=== PATIENT | male | born 1945 | race Caucasian/White ===

== ENCOUNTER → 2016-05-19 | Outpatient (CLI) | payer MEDICARE | END | disposition home or self-care (01) | LOC: LABWHC1 14:45 | PROVIDERS: ATTEND Internal Medicine | DX: E03.9 Hypothyroidism, unspecified (principal) | CPT/HCPCS: 36415; 84439; 84443 ==

== ENCOUNTER 2022-09-09 21:57 | Emergency (ER) | payer MEDICARE ==
[2022-09-09 22:09] VITALS: TEMP 97.7
--- NOTE | 2022-09-09 22:26 | ED ---
Male Urogenital HPI - General Chief complaint: Urogenital Stated complaint: Can't go pee Time Seen by Provider: 09/09/22 22:12 Source: patient, RN notes reviewed, old records reviewed Mode of arrival: ambulatory Limitations: no limitations - History of Present Illness Initial comments: This is a 77 -year-old male unable to urinate. Patient presents today with difficulty in urination. Severe severe abdominal pain. History of difficulty with urination secondary to prostate issues. Patient has known prior need for Sanchez catheterization. No recent fevers cough congestion travel history no blood in the urine. MD Complaint: other (Severe abdominal pain) -: hour(s) Location: abdomen Radiation: none Severity: moderate Severity scale (1-10): 7 Quality: stabbing Consistency: constant Improves with: none Worsens with: none Reports: denies other symptoms, urinary retention - Related Data Allergies Allergy/AdvReac Type Severity Reaction Status Date / Time No Known Allergies Allergy Verified 09/09/22 22:09 Review of Systems ROS Statement: Those systems with pertinent positive or pertinent negative responses have been documented in the HPI. ROS Other: All systems not noted in ROS Statement are negative. Past Medical History Past Medical History: Hyperlipidemia, Hypertension, Thyroid Disorder Past Surgical History: Joint Replacement, Tonsillectomy Additional Past Surgical History / Comment(s): thyroidectomy Past Psychological History: No Psychological Hx Reported Smoking Status: Never smoker Past Alcohol Use History: None Reported Past Drug Use History: None Reported General Exam Limitations: no limitations General appearance: alert, in no apparent distress, anxious Head exam: Present: atraumatic, normocephalic, normal inspection Eye exam: Present: normal appearance, PERRL, EOMI. Absent: scleral icterus, conjunctival injection, periorbital swelling ENT exam: Present: normal exam, mucous membranes moist Neck exam: Present: normal inspection. Absent: tenderness, meningismus, lymphadenopathy Respiratory exam: Present: normal lung sounds bilaterally. Absent: respiratory distress, wheezes, rales, rhonchi, stridor Cardiovascular Exam: Present: regular rate, normal rhythm, normal heart sounds. Absent: systolic murmur, diastolic murmur, rubs, gallop, clicks GI/Abdominal exam: Present: soft, normal bowel sounds. Absent: distended, tenderness, guarding, rebound, rigid Extremities exam: Present: normal inspection, full ROM, normal capillary refill. Absent: tenderness, pedal edema, joint swelling, calf tenderness Back exam: Present: normal inspection Neurological exam: Present: alert, oriented X3, CN II-XII intact Psychiatric exam: Present: normal affect, normal mood Skin exam: Present: warm, dry, intact, normal color. Absent: rash Course Vital Signs 09/09/22 09/10/22 09/10/22 21:59 01:00 03:45 Temperature 97.7 F Pulse Rate 100 84 80 Respiratory 28 H 16 16 Rate Blood Pressure 161/100 183/88 168/85 O2 Sat by Pulse 97 95 99 Oximetry - Reevaluation(s) Reevaluation #1: 09/10/22 01:55 Medical record is reviewed Reevaluation #2: 09/10/22 01:56 Patient informed results questions answered Reevaluation #3: 09/10/22 01:56 Patient has relief with Sanchez catheter placement Reevaluation #4: 09/10/22 01:56 Was pt. sent in by a medical professional or institution? @ -no Did you speak to anyone other than the patient for history? @ -no Did you review nursing and triage notes? @ -agree Were old charts reviewed? @ -yes Differential Diagnosis? @ -prior EKG interpreted by me (3pts min.)? @ -no X-rays interpreted by me (1pt min.)? @ -no CT interpreted by me (1pt min.)? @ -yes U/S interpreted by me (1pt. min.)? @ -no What testing was considered but not performed? (CT, X-rays, U/S, labs)? Why? @ -no What meds were considered but not given? Why? @ -no Did you discuss the management of the patient with other professionals? @ -no Did you reconcile home meds? @ -no Was smoking cessation discussed for >3mins.? @ -no Was critical care preformed (if so, how long)? @ -no Were there social determinants of health that impacted care today? How? (Homelessness, low income, unemployed, alcoholism, drug addiction, transportation, low edu. Level, literacy, decrease access to med. care, long term, rehab)? @ -no Was there de-escalation of care discussed even if they declined? (Discuss DNR or withdrawal of care, Hospice)? @ -no What co-morbidities impacted this encounter? (DM, HTN, Smoking, COPD, CAD, Cancer, CVA, Hep., AIDS, mental health diagnosis, sleep apnea, morbid obesity)? @ -none Was patient admitted / discharged? @ -77 male to the emergency department for evaluation. Patient has Sanchez catheter placed with significant urinary output. Patient did have residual abdominal pain despite Sanchez catheter placement. Patient symptoms are improving he can be discharged home Discharged Undiagnosed new problem with uncertain prognosis? @ -no Drug Therapy requiring intensive monitoring for toxicity (Heparin, Nitro, Insulin, Cardizem)? @ -no Were any procedures done? @ -no Diagnosis/symptom? @ -Urinary retention and abdominal pain Acute, or Chronic, or Acute on Chronic? @ -acute Uncomplicated (without systemic symptoms) or Complicated (systemic symptoms)? @ -complicated Side effects of treatment? @ -no Exacerbation, Progression, or Severe Exacerbation] @ -no Poses a threat to life or bodily function? @ -no Reevaluation #5: 09/10/22 01:56 Differential Abdominal Pain Men: Appendicitis, cholecystitis, diverticulosis, ischemic bowel, pancreatitis, hepatitis, UTI, gastroenteritis, AAA, incarcerated hernia, bowel obstruction, constipation, inflammatory bowel, hepatitis, peptic ulcer disease, splenic infarction, perforated viscus, testicular torsion, this is not meant to be an all-inclusive list Medical Decision Making - Medical Decision Making 77 male to the emergency department for evaluation. Patient has Sanchez catheter placed with significant urinary output. Patient symptoms are improving he can be discharged home - Lab Data Lab Results 09/09/22 Range/Units 23:30 Urine Color Light Yellow Urine Appearance Clear (Clear) Urine pH 5.5 (5.0-8.0) Ur Specific [place] 1.011 (1.001-1.035) Urine Protein Negative (Negative) Urine Glucose (UA) Negative (Negative) Urine Ketones Negative (Negative) Urine Blood Negative (Negative) Urine Nitrite Negative (Negative) Urine Bilirubin Negative (Negative) Urine Urobilinogen <2.0 (<2.0) mg/dL Ur Leukocyte Esterase Negative (Negative) - Radiology Data Radiology results: report reviewed (CT of the abdomen and pelvis is negative for acute disease), image reviewed Disposition Clinical Impression: Urinary retention Disposition: HOME SELF-CARE Condition: Good Instructions (If sedation given, give patient instructions): Urinary Retention in Men (ED) Is patient prescribed a controlled substance at d/c from ED?: No Referrals: Mariana Cox MD [STAFF PHYSICIAN] - 1-2 days Time of Disposition: 03:00
[2022-09-09] MEDS ORDERED: HYDROmorphone 1 MG/ML 1 ML SYRINGE IM STA (23:30)
[2022-09-10 00:22] LABS: Appearance,Urine Clear (Clear); Bilirubin,Urine Negative (Negative); Blood,Urine Negative (Negative); Color,Urine Light Yellow; Glucose,Urine (UA) Negative (Negative); Ketones,Urine Negative (Negative); Leukocyte Esterase,Urine Negative (Negative); Nitrite,Urine Negative (Negative); PH, Urine 5.5 (5.0-8.0); Protein,Urine Negative (Negative); Specific Gravity,Urine 1.011 (1.001-1.035); Urobilinogen,Urine <2.0 mg/dL (<2.0)
[2022-09-10 01:18] VITALS: RESP 16
--- NOTE | 2022-09-10 01:42 | CT ---
EXAM: CT Abdomen and Pelvis Without Intravenous Contrast CLINICAL HISTORY: ITS.REASON CT Reason: pain TECHNIQUE: Axial computed tomography images of the abdomen and pelvis without intravenous contrast. CTDI is 16.5 mGy and DLP is 994.1 mGy-cm. This CT exam was performed using one or more of the following dose reduction techniques: automated exposure control, adjustment of the mA and/or kV according to patient size, and/or use of iterative reconstruction technique. COMPARISON: No relevant prior studies available. FINDINGS: ABDOMEN: Liver: Unremarkable. Gallbladder and bile ducts: Unremarkable. Pancreas: Unremarkable. Spleen: Calcified granulomas within the spleen. Adrenals: Unremarkable. Kidneys and ureters: Parapelvic cysts within the kidneys. No hydronephrosis. Stomach and bowel: Unremarkable. PELVIS: Appendix: No findings to suggest acute appendicitis. Bladder: Thickened and inflamed bladder with multiple punctate stones. Sanchez catheter in place. Reproductive: Unremarkable as visualized. ABDOMEN and PELVIS: Intraperitoneal space: Unremarkable. No free air. No significant fluid collection. Bones/joints: No acute fracture. Soft tissues: Unremarkable. Vasculature: Unremarkable. Lymph nodes: Unremarkable. IMPRESSION: Thickened and inflamed bladder containing multiple punctate stones. Snachez catheter in place. Findings suggestive of cystitis.
[2022-09-10] MEDS ORDERED: ACET/COD 300 MG/30 MG STARTER PACK 6 TAB BTL PO STA (03:20)
[2022-09-10 03:46] VITALS: BP 168/85; PULSE 80
== END 2022-09-10 03:45 | disposition home or self-care (01) ==
LOC: EC 21:57
DX: N30.90 Cystitis, unspecified without hematuria (principal); I10 Essential (primary) hypertension
CPT/HCPCS: 81003; 74176; 51702; 99284; 96372; J1170

== ENCOUNTER 2023-03-05 16:47 | Emergency (ER) | payer MEDICARE ==
[2023-03-05 17:02] VITALS: BP 174/102; PULSE 78; RESP 18; TEMP 97.9
[2023-03-05 18:02] LABS: Amphetamine Screen,Urine Not Detected (NotDetected); Barbiturate Screen,Urine Not Detected (NotDetected); Benzodiazepines Screen,Urine Not Detected (NotDetected); Cocaine Screen,Urine Not Detected (NotDetected); Methadone Screen, Urine Not Detected (NotDetected); Opiate Screen,Urine Not Detected (NotDetected); Oxycodone Screen, Urine Not Detected (NotDetected); Phencyclidine Screen,Urine Not Detected (NotDetected); Tricyclic Antidepressant,Urine Not Detected (NotDetected); Urn Cannabinoid Scrn Detected (NotDetected)
[2023-03-05] MEDS ORDERED: ALPRAZolam 0.5 MG TAB PO STA ×2 (18:30)
--- NOTE | 2023-03-05 18:31 | ED ---
Anxiety HPI - General Chief Complaint: Anxiety Stated Complaint: stress,anxiety Time Seen by Provider: 03/05/23 16:58 Source: patient, family, RN notes reviewed Mode of arrival: ambulatory Limitations: no limitations - History of Present Illness Initial Comments: 77-year-old male presents emergency Department chief complaint anxiety, stress. Patient states that he's having severe bouts of anxiety which she feels like he cannot control. He denies any suicidal or homicidal. States is related to the holidays and which she states that. Patient states he is unsure how to handle himself at this point denies any specific complaints otherwise. Denies any drug or alcohol abuse. - Related Data Allergies/Adverse Reactions: Allergies Allergy/AdvReac Type Severity Reaction Status Date / Time No Known Allergies Allergy Verified 03/05/23 16:54 Review of Systems ROS Statement: Those systems with pertinent positive or pertinent negative responses have been documented in the HPI. ROS Other: All systems not noted in ROS Statement are negative. Past Medical History Past Medical History: Hyperlipidemia, Hypertension, Thyroid Disorder Past Surgical History: Joint Replacement, Tonsillectomy Additional Past Surgical History / Comment(s): thyroidectomy Past Psychological History: No Psychological Hx Reported Smoking Status: Never smoker Past Alcohol Use History: None Reported Past Drug Use History: None Reported General Exam Limitations: no limitations General appearance: alert, in no apparent distress, anxious Head exam: Present: atraumatic, normocephalic, normal inspection Eye exam: Present: normal appearance, PERRL, EOMI. Absent: scleral icterus, conjunctival injection, periorbital swelling ENT exam: Present: normal exam, mucous membranes moist Neck exam: Present: normal inspection, full ROM. Absent: tenderness, meningismus, lymphadenopathy Respiratory exam: Present: normal lung sounds bilaterally. Absent: respiratory distress, wheezes, rales, rhonchi, stridor Cardiovascular Exam: Present: regular rate, normal rhythm, normal heart sounds. Absent: systolic murmur, diastolic murmur, rubs, gallop, clicks GI/Abdominal exam: Present: soft, normal bowel sounds. Absent: distended, tenderness, guarding, rebound, rigid Neurological exam: Present: alert, oriented X3 Skin exam: Present: warm, dry, intact, normal color. Absent: rash Course Vital Signs 03/05/23 16:51 Temperature 97.9 F Pulse Rate 78 Respiratory 18 Rate Blood Pressure 174/102 O2 Sat by Pulse 96 Oximetry Medical Decision Making - Medical Decision Making Was pt. sent in by a medical professional or institution (, ANATOLIY, SPECIALTY DEVELOPMENT CONSULTANT, urgent care, hospital, or alf...) When possible be specific @ -No Did you speak to anyone other than the patient for history (EMS, parent, family, police, friend...)? What history was obtained from this source @ -No Did you review nursing and triage notes (agree or disagree)? Why? @ -I reviewed and agree with nursing and triage notes Were old charts reviewed (outside hosp., previous admission, EMS record, old EKG, old radiological studies, urgent care reports/EKG's, alf records)? Report findings @ -No old charts were reviewed Differential Diagnosis (chest pain, altered mental status, abdominal pain women, abdominal pain men, vaginal bleeding, weakness, fever, dyspnea, syncope, headache, dizziness, GI bleed, back pain, seizure, CVA, palpatations, mental health, musculoskeletal)? @ -nDifferential Mental Health Depression, anxiety, bipolar, psychosis, schizophrenia, borderline personality, situational depression, adjustment disorder, behavioral disorder, brain tumor, malingering, substance abuse, encephalopathy, medication reaction, dementia, hypothyroidism, degenerative neurologic disorder, lupus.... This is not meant to be all-inclusive liste EKG interpreted by me (3pts min.). @ -[None X-rays interpreted by me (1pt min.). @ -None done CT interpreted by me (1pt min.). @ -None done U/S interpreted by me (1pt. min.). @ -None done What testing was considered but not performed or refused? (CT, X-rays, U/S, labs)? Why? @ -None What meds were considered but not given or refused? Why? @ -None Did you discuss the management of the patient with other professionals (professionals i.e. ANATOLIY Coronel, SPECIALTY DEVELOPMENT CONSULTANT, lab, RT, psych nurse, public health social worker, print manager, teacher, agricultural technical officer, disease case manager rn)? Give summary @ -EPS evaluated the patient recommended outpatient treatment with follow-up on Monday with his PCP discuss possible starting BuSpar, outpatient treatment. Was smoking cessation discussed for >3mins.? @ -No Was critical care preformed (if so, how long)? @ -No Were there social determinants of health that impacted care today? How? (Homelessness, low income, unemployed, alcoholism, drug addiction, transportation, low edu. Level, literacy, decrease access to med. care, custodial, rehab)? @ -No Was there de-escalation of care discussed even if they declined (Discuss DNR or withdrawal of care, Hospice)? DNR status @ -No What co-morbidities impacted this encounter? (DM, HTN, Smoking, COPD, CAD, Cancer, CVA, ARF, Chemo, Hep., AIDS, mental health diagnosis, sleep apnea, morbid obesity)? @ -None Was patient admitted / discharged? Hospital course, mention meds given and route, prescriptions, significant lab abnormalities, going to OR and other pertinent info. @ -[Discharge patient is stable for discharge denies suicidal or homicidal ideation evaluated by EPS was given Xanax 2 pills for short term anxiety relief. Undiagnosed new problem with uncertain prognosis? @ -No Drug Therapy requiring intensive monitoring for toxicity (Heparin, Nitro, Insulin, Cardizem)? @ -No Were any procedures done? @ -No Diagnosis/symptom? @ -[Anxiety Acute, or Chronic, or Acute on Chronic? @ -Acute Uncomplicated (without systemic symptoms) or Complicated (systemic symptoms)? @ -Uncomplicated Side effects of treatment? @ -No Exacerbation, Progression, or Severe Exacerbation? @ -No Poses a threat to life or bodily function? How? (Chest pain, [place], [place], pneumonia, PE, COPD, DKA, ARF, appy, cholecystitis, CVA, Diverticulitis, Homicidal, Suicidal, threat to staff... and all critical care pts) @ -No - Lab Data Lab Results 03/05/23 Range/Units 17:28 Urine Opiates Screen Not Detected (NotDetected) Ur Oxycodone Screen Not Detected (NotDetected) Urine Methadone Screen Not Detected (NotDetected) Ur Barbiturates Screen Not Detected (NotDetected) U Tricyclic Antidepress Not Detected (NotDetected) Ur Phencyclidine Scrn Not Detected (NotDetected) Ur Amphetamines Screen Not Detected (NotDetected) U Methamphetamines Scrn Not Detected (NotDetected) U Benzodiazepines Scrn Not Detected (NotDetected) Urine Cocaine Screen Not Detected (NotDetected) U Marijuana (THC) Screen Detected H (NotDetected) Ur Drug Screen Comment SEE COMMENT Disposition Clinical Impression: Acute anxiety Disposition: HOME SELF-CARE Condition: Stable Instructions (If sedation given, give patient instructions): Generalized Anxiety Disorder (ED) Additional Instructions: Please return to the Emergency Department if symptoms worsen or any other concerns. Is patient prescribed a controlled substance at d/c from ED?: No Referrals: Lan Grier MD [Primary Care Provider] - 1-2 days Time of Disposition: 18:31
== END 2023-03-05 18:46 | disposition home or self-care (01) ==
LOC: EC 16:47
DX: F41.9 Anxiety disorder, unspecified (principal); I10 Essential (primary) hypertension
CPT/HCPCS: 80306; 82075; 99283

== ENCOUNTER → 2023-04-03 | Outpatient (CLI) | payer MEDICARE ==
--- NOTE | 2023-04-03 17:50 | US ---
EXAMINATION TYPE: US kidneys/renal and bladder DATE OF EXAM: 04/03/2023 COMPARISON: NONE CLINICAL INDICATION: Male, 77 years old with history of N18.3 CHRONIC KIDNEY DISEASE, STAGE 3 UNSPECI FIED; CKD, no symptoms, known renal cysts EXAM MEASUREMENTS: Right Kidney: 13.5 x 4.8 x 5.5 cm Left Kidney: 12.9 x 4.7 x 7.1 cm Right Kidney: Lower pole parapelvic cyst measuring 3.2 x 1.9 x 1.8cm. No hydronephrosis. Left Kidney: 2.5 x 2.5 x 2.3cm mid pole parapelvic cyst. No hydronephrosis. Bladder: wnl Bilateral Jets seen: Yes IMPRESSION: At least one parapelvic cyst in either kidney measuring up to 3.2 cm. No evident hydronephrosis.
== END | disposition home or self-care (01) ==
LOC: RADUSWWP 13:52
PROVIDERS: ATTEND Internal Medicine
DX: N28.1 Cyst of kidney, acquired (principal); N18.30 Chronic kidney disease, stage 3 unspecified
CPT/HCPCS: 76770

== ENCOUNTER 2023-12-21 09:13 | Emergency (ER) | payer MEDICARE ==
[2023-12-21 09:23] VITALS: RESP 18
--- NOTE | 2023-12-21 10:47 | ED ---
Fall HPI - General Chief Complaint: Fall Stated Complaint: Fall/Back Pain Time Seen by Provider: 12/21/23 09:23 Source: patient, RN notes reviewed Mode of arrival: ambulatory - History of Present Illness Initial Comments: This is a 78-year-old male presenting with slip and fall onto step, falling onto his gluteus yesterday. Patient denies striking head, loss of consciousness, neck pain, radiating pain, saddle paresthesia. Patient notes gluteal pain that worsens when seated. Patient endorses decreased urinary output for 3 days, prior to fall. Patient endorses dribbling and straining when attempting to urinate. Endorses history of similar symptoms in the past, resolved with tamsulosin use at the time. Patient endorses annual PSA and RITA evaluations with no abnormal findings. Patient endorses associated suprapubic pressure and fullness. Patient also notes constipation for 4 days. MD Complaint: fall Onset/Timin -: days(s) Fall From: standing Fall Witnessed: no Loss of Consciousness: none Prolonged Down Time?: no Symptoms Prior to Fall: none Location: buttocks Severity scale (1-10): 7 - Related Data Home Medications Medication Instructions Recorded Confirmed ALPRAZolam [Xanax] 1 mg PO BID PRN 12/21/23 12/21/23 Atorvastatin [Lipitor] 20 mg PO HS 12/21/23 12/21/23 Escitalopram [Lexapro] 20 mg PO DAILY 12/21/23 12/21/23 Furosemide [Lasix] 20 mg PO DAILY 12/21/23 12/21/23 Levothyroxine Sodium [Synthroid] 150 mcg PO DAILY 12/21/23 12/21/23 Metoprolol Tartrate [Lopressor] 50 mg PO BID 12/21/23 12/21/23 Omeprazole [PriLOSEC] 40 mg PO DAILY 12/21/23 12/21/23 Tamsulosin [Flomax] 0.4 mg PO HS 12/21/23 12/21/23 amLODIPine BESYLATE/BENAZEPRIL 1 cap PO BID 12/21/23 12/21/23 [Lotrel 5-20 mg Capsule] buPROPion XL [Wellbutrin XL] 300 mg PO DAILY 12/21/23 12/21/23 hydrALAZINE HCL [Apresoline] 50 mg PO BID 12/21/23 12/21/23 Allergies Allergy/AdvReac Type Severity Reaction Status Date / Time No Known Allergies Allergy Verified 12/21/23 11:26 Review of Systems ROS Statement: Those systems with pertinent positive or pertinent negative responses have been documented in the HPI. ROS Other: All systems not noted in ROS Statement are negative. Past Medical History Past Medical History: Hyperlipidemia, Hypertension, Thyroid Disorder Past Surgical History: Joint Replacement, Tonsillectomy Additional Past Surgical History / Comment(s): thyroidectomy, bilat knee replacements Past Psychological History: Anxiety Smoking Status: Never smoker Past Alcohol Use History: None Reported Past Drug Use History: None Reported General Exam General appearance: alert, in no apparent distress Head exam: Present: atraumatic, normocephalic, normal inspection Eye exam: Present: normal appearance, PERRL, EOMI. Absent: scleral icterus, conjunctival injection, periorbital swelling ENT exam: Present: normal exam, mucous membranes moist Neck exam: Present: normal inspection. Absent: tenderness, meningismus, lymphadenopathy Respiratory exam: Present: normal lung sounds bilaterally. Absent: respiratory distress, wheezes, rales, rhonchi, stridor Cardiovascular Exam: Present: regular rate, normal rhythm, normal heart sounds. Absent: systolic murmur, diastolic murmur, rubs, gallop, clicks GI/Abdominal exam: Present: soft, tenderness (Positive suprapubic distention and tenderness), normal bowel sounds. Absent: distended, guarding, rebound, rigid Extremities exam: Present: normal inspection, full ROM, normal capillary refill. Absent: tenderness, pedal edema, joint swelling, calf tenderness Back exam: Present: normal inspection, paraspinal tenderness (Positive left paralumbar and parasacral muscle spasm and tenderness), vertebral tenderness (Positive diffuse lumbar and coccyx spinal tenderness without obvious crepitus or step-off.) Neurological exam: Present: alert, oriented X3, CN II-XII intact Psychiatric exam: Present: normal affect, normal mood Skin exam: Present: warm, dry, intact, normal color. Absent: rash Course Vital Signs 12/21/23 09:16 Temperature 97.8 F Pulse Rate 69 Respiratory 18 Rate Blood Pressure 137/84 O2 Sat by Pulse 96 Oximetry Medical Decision Making - Medical Decision Making Was pt. sent in by a medical professional or institution (, PA, RETAIL SERVICE SPECIALIST, urgent care, hospital, or group home...) When possible be specific @ -No Did you speak to anyone other than the patient for history (EMS, parent, family, police, friend...)? What history was obtained from this source @ -No Did you review nursing and triage notes (agree or disagree)? Why? @ -I reviewed and agree with nursing and triage notes Were old charts reviewed (outside hosp., previous admission, EMS record, old EKG, old radiological studies, urgent care reports/EKG's, group home records)? Report findings @ -No old charts were reviewed Differential Diagnosis (chest pain, altered mental status, abdominal pain women, abdominal pain men, vaginal bleeding, weakness, fever, dyspnea, syncope, headache, dizziness, GI bleed, back pain, seizure, CVA, palpatations, mental health, musculoskeletal)? @ -Differential Back Pain: Strain, zoster, cauda equina syndrome, epidural abscess, vertebral osteomyelit is, discitis, fracture, subluxation, disc herniation, DJD, spinal stenosis, dissection, AAA, pancreatitis, peptic ulcer disease, pyelonephritis, kidney stone, this is not meant to be an all-inclusive list. EKG interpreted by me (3pts min.). @ -As above X-rays interpreted by me (1pt min.). @ -X-rays show possible coccyx fracture. No indication of lumbar, sacral, hip fracture dislocation CT interpreted by me (1pt min.). @ -None done U/S interpreted by me (1pt. min.). @ -Bladder scan shows over 400 mL urine in bladder. What testing was considered but not performed or refused? (CT, X-rays, U/S, labs)? Why? @ -None What meds were considered but not given or refused? Why? @ -None Did you discuss the management of the patient with other professionals (professionals i.e. , PA, RETAIL SERVICE SPECIALIST, lab, RT, psych nurse, social psychologist, business intelligence manager, teacher, tax revenue officer, social work case manager)? Give summary @ -No Was smoking cessation discussed for >3mins.? @ -No Was critical care preformed (if so, how long)? @ -No Were there social determinants of health that impacted care today? How? (Homelessness, low income, unemployed, alcoholism, drug addiction, transportation, low edu. Level, literacy, decrease access to med. care, [place] [facility], rehab)? @ -No Was there de-escalation of care discussed even if they declined (Discuss DNR or withdrawal of care, Hospice)? DNR status @ -No What co-morbidities impacted this encounter? (DM, HTN, Smoking, COPD, CAD, Cancer, CVA, ARF, Chemo, Hep., AIDS, mental health diagnosis, sleep apnea, morbid obesity)? @ -None Was patient admitted / discharged? Hospital course, mention meds given and route, prescriptions, significant lab abnormalities, going to OR and other pertinent info. @ -Discharged. X-rays of the lower back and hip showed, possible coccyx fracture otherwise benign. Bladder scan showed urinary retention and Sanchez catheter placed. Patient noted minimal relief following Norflex and Toradol. Patient noted significant significant pain relief following Dilaudid adminis tration. Patient has ride home Undiagnosed new problem with uncertain prognosis? @ -No Drug Therapy requiring intensive monitoring for toxicity (Heparin, Nitro, Insulin, Cardizem)? @ -No Were any procedures done? @ -Sanchez catheter. Patient discharged with catheter and advised to follow-up with primary care/urology. Diagnosis/symptom? @ -Coccyx fracture, urinary retention likely due to BPH Acute, or Chronic, or Acute on Chronic? @ -Acute Uncomplicated (without systemic symptoms) or Complicated (systemic symptoms)? @ -Uncomplicated Side effects of treatment? @ -No Exacerbation, Progression, or Severe Exacerbation? @ -No Poses a threat to life or bodily function? How? (Chest pain, USA, GA, pneumonia, PE, COPD, DKA, ARF, appy, cholecystitis, CVA, Diverticulitis, Homicidal, Suicidal, threat to staff... and all critical care pts) @ -No - Lab Data Lab Results 12/21/23 Range/Units 13:20 Urine Color Yellow Urine Appearance Clear (Clear) Urine pH 5.5 (5.0-8.0) Ur Specific [place] 1.022 (1.001-1.035) Urine Protein Negative (Negative) Urine Glucose (UA) Negative (Negative) Urine Ketones Negative (Negative) Urine Blood Negative (Negative) Urine Nitrite Negative (Negative) Urine Bilirubin Negative (Negative) Urine Urobilinogen <2.0 (<2.0) mg/dL Ur Leukocyte Esterase Negative (Negative) Disposition Clinical Impression: Fractured coccyx, Urinary retention, Fall Disposition: HOME SELF-CARE Condition: Good Instructions (If sedation given, give patient instructions): Urinary Retention in Men (ED), Fall Prevention for Older Adults (ED) Additional Instructions: MiraLAX, docusate, apple juice, prune juice, glycerin suppository, rectal enema for ongoing constipation. Advised follow-up with PCP/urology for Sanchez catheter removal when appropriate. Is patient prescribed a controlled substance at d/c from ED?: No Referrals: Lan Grier MD [Primary Care Provider] - 1-2 days Time of Disposition: 14:08
[2023-12-21] MEDS: ORPHENADRINE 30 MG/ML 2 ML VIAL IM STA (10:55)
[2023-12-21] MEDS: KETOROLAC 15 MG/ML 1 ML VIAL IM STA (10:57)
--- NOTE | 2023-12-21 11:14 | XR ---
EXAMINATION TYPE: XR lumbosacral spine 5V, XR Hip 2 views Bilateral Complete, XR 3 views sacrum coccy x DATE OF EXAM: 12/21/2023 Comparison: Lumbar spine 10/08/2010 Clinical History: 78-year-old male with pain after Fall Findings: Lumbar spine: Osteopenia. 5 lumbar type vertebral bodies. Hypertrophic facet arthropathy mid to lower lumbar spine. Moderate degenerative disc disease with disc space narrowing and endplate spondylosis lower thoracic spine as well as L1-L2. Mild degenerative disc disease elsewhere throughout the lumbar spine. Degene rative grade 1 retrolisthesis L2-L3 and L3-L4 and degenerative grade 1 anterolisthesis L4-L5. Vertebr al body heights are preserved. Apical scarring calcification throughout the abdominal aorta. Sacrum and coccyx: SI joints appear symmetric and intact. Delineation of the arcuate lines of the sacrum. There is anter ior angulation at the lower coccyx. Bilateral hips: There is mild marginal spurring at both hips. Joint spaces relatively maintained. Osteopenia. No acut e fracture, subluxation, or dislocation is seen. Impression: 1. Lumbar spine: Hypertrophic facet arthropathy especially mid to lower lumbar spine. Degenerative gr nimisha 1 spondylolisthesis L2-L3, L3-L4, L4-L5. Mild to moderate multilevel degenerative disc disease. N o vertebral compression collapse. 2. Sacrum coccyx: Focal anterior angulation of the lower coccyx could reflect an age indeterminate ta il bone fracture. Clinically correlate. 3. Bilateral hips: Very mild degenerative change at the hips. No acute osseous abnormality seen. [facility], , 12/21/2023 11:12 AM
[2023-12-21] MEDS: HYDROmorphone 0.5 MG/0.5 ML SYRINGE IVP STA (12:51)
[2023-12-21 13:33] LABS: Appearance,Urine Clear (Clear); Bilirubin,Urine Negative (Negative); Blood,Urine Negative (Negative); Color,Urine Yellow; Glucose,Urine (UA) Negative (Negative); Ketones,Urine Negative (Negative); Leukocyte Esterase,Urine Negative (Negative); Nitrite,Urine Negative (Negative); PH, Urine 5.5 (5.0-8.0); Protein,Urine Negative (Negative); Specific Gravity,Urine 1.022 (1.001-1.035); Urobilinogen,Urine <2.0 mg/dL (<2.0)
[2023-12-21 20:30] VITALS: BP 114/66; PULSE 52; TEMP 98.7
== END 2023-12-21 14:30 | disposition home or self-care (01) ==
LOC: EC 09:13
CPT/HCPCS: 51702; 51798; 72110; 72220; 73521; 81003; 96372; 96374; 99283